=== PATIENT | male | born 1960 | race Caucasian/White ===

== ENCOUNTER → 2024-05-23 | Outpatient (CLI) | payer OTHER, SELFPAY ==
--- NOTE | 2024-05-23 12:43 | MRI_ITS ---
PROCEDURE: PELVIS W/WO CONTRAST REASON FOR EXAM: Preoperative scan for radiation planning/prostate cancer. TECHNIQUE: Multiplanar, multisequence MRI of the prostate was performed before and following intravenous gadolinium-based contrast. Axial, coronal, and sagittal high-resolution T2-weighted images, axial T1-weighted images, diffusion-weighted images with high B value, and dynamic postcontrast fat saturated T1-weighted images were performed. CONTRAST: 17 cc Clariscan intravenous COMPARISON: None. FINDINGS: Prostate Volume: 43.9 mL (prostate measures 4.9 x 4.5 x 3.8 cm) Peripheral Zone: No abnormality on ADC and high b-value DWI. Transitional Zone: Homogeneous intermediate signal intensity (normal). Seminal vesicles: Normal and symmetric. Neurovascular bundles: Normal and symmetric. Lymph nodes: No lymphadenopathy is identified. Bone marrow: No suspicious lesions. Miscellaneous: Spacer gel between the prostate and rectum measures 4.2 x 3.6 x 1.6 cm. Small fat containing inguinal hernias bilaterally. MRI/Pelvis W/WO Contrast IMPRESSION: Prostatomegaly with no suspicious PI-RADS 3 or greater lesions identified. No metastatic disease is present. Spacer gel between the prostate and rectum is in place. Reading Location: [facility]
== END | disposition home or self-care (01) ==
PROVIDERS: PCP Internal Medicine; Referring Provider Student in an Organized Health Care Education/Training Program; Visit Provider Student in an Organized Health Care Education/Training Program
DX: C61 Malignant neoplasm of prostate (principal)
CPT/HCPCS: 72197; A9575